=== PATIENT | male | born 1995 | race Caucasian/White ===

== ENCOUNTER 2019-03-07 10:36 | Emergency (ER) | payer OTHER ==
[2019-03-07] MEDS ORDERED: cefTRIAXone 250 MG in Lidocaine 1% 1 ML IM ONE ×4 (11:04)
[2019-03-07] MEDS ORDERED: Azithromycin 250 MG Tab PO ONE (11:04)
--- NOTE | 2019-03-07 11:07 | EDM.PDOC ---
ED HPI GENERAL MEDICAL PROBLEM - General Chief Complaint: Skin Complaint Stated Complaint: RASH Time Seen by Provider: 03/07/19 10:54 - History of Present Illness INITIAL COMMENTS - FREE TEXT/NARRATIVE: HISTORY AND PHYSICAL: History of present illness: The patient is a 23-year-old male with no significant past medical history who presents with a rash on his penile shaft that he noticed 2-3 weeks ago and has not gone away. He says he has had unprotected sex and has not been good about being more discerning and protecting himself and says that initially the rash started as a peely like area of skin on the shaft of the penis and then he proceeded to become more bumpy and seems to be spreading to the other side of his penis. Is not going to the proximal penile shaft and there are no lesions seen on the scrotal skin or the perineal area. He has no systemic complaints of fever chills nausea vomiting abdominal pain dysuria frequency flank pain or penile discharge. He says that from the beginning the area has always been sensitive and painful but he is never noticed any vesicles or pustules or any drainage from the areas. He has not noticed any swollen glands in his groin area. He also says that he has been having some pain in his right upper extremity which is the entire arm and is more with movement but he just started a new job and just wanted to tell me that as well. The patient has no testicular pain or swelling Review of systems: As per history of present illness and below otherwise all systems reviewed and negative. Past medical history: As per history of present illness and as reviewed below otherwise noncontributory. Surgical history: As per history of present illness and as reviewed below otherwise noncontributory. Social history: No reported history of drug or alcohol abuse. Family history: As per history of present illness and as reviewed below otherwise noncontributory. Physical exam: HEENT: Atraumatic, normocephalic,, negative for conjunctival pallor or scleral icterus, mucous membranes moist, throat clear, neck supple, nontender, trachea midline. Lungs: Clear to auscultation, breath sounds equal bilaterally, chest nontender. Heart: S1S2, regular in rhythm no overt murmurs Abdomen: Soft, nondistended, nontender. Negative for masses or hepatosplenomegaly. Negative for costovertebral tenderness. Pelvis: Stable nontender. Genitourinary: Testicles are distended bilaterally and there is no inguinal adenopathy. There is no rash or lesions seen except at the distal third of the penile shaft where there are bumpy like areas that are raised and palpable only one area that looks somewhat vesicular. The area seems almost circumferential but is not complete. There is tenderness with palpation but there is no swelling. Rectal: Deferred. Extremities: Atraumatic, negative for cords or calf pain. Neurovascular unremarkable. Neuro: Awake, alert, oriented. Cranial nerves II through XII unremarkable. Cerebellum unremarkable. Motor and sensory unremarkable throughout. Exam nonfocal. Diagnostics: [] Therapeutics: Rocephin azithromycin I discussed with the patient that he would need to follow-up with urology as it is unclear what these lesions truly are but they're suspicious for HSV. He would like to be treated for everything and I will give him antibiotics for gonorrhea and chlamydia as well as Valtrex for home. He is agreeable with this plan. Impression: Penile lesions rule out HSV Definitive disposition and diagnosis as appropriate pending reevaluation and review of above. Genitals Pain Score (Numeric/FACES): 4 - Related Data Allergies Allergy/AdvReac Type Severity Reaction Status Date / Time morphine Allergy Anaphylactic Verified 03/07/19 10:52 Shock Home Meds: Home Meds Escitalopram [Lexapro] 20 mg PO DAILY 03/07/19 [History] Past Medical History HEENT History: Reports: None Cardiovascular History: Reports: None Respiratory History: Reports: None Gastrointestinal History: Reports: None Genitourinary History: Reports: None Musculoskeletal History: Reports: None Neurological History: Reports: None Psychiatric History: Reports: Aggressive/Hostile Behaviors, Depression, Emotional Problems, Suicide Attempt, Suicidal Ideation Endocrine/Metabolic History: Reports: None Hematologic History: Reports: None Oncologic (Cancer) History: Reports: None - Infectious Disease History Infectious Disease History: Reports: None - Past Surgical History Head Surgeries/Procedures: Reports: None Social & Family History - Family History Family Medical History: Noncontributory - Tobacco Use Smoking Status *Q: Never Smoker ED ROS GENERAL - Review of Systems Review Of Systems: ROS reveals no pertinent complaints other than HPI. ED EXAM, SKIN/RASH Exam: See Below (see Dictation) Course - Vital Signs Last Recorded V/S: Last Vital Signs Temp 35.6 C 03/07/19 10:54 Pulse 71 03/07/19 10:54 Resp 16 03/07/19 10:54 BP 129/69 03/07/19 10:54 Pulse Ox 97 03/07/19 10:54 - Orders/Labs/Meds Meds: Medications Discontinued Medications Generic Name Dose Route Start Last Admin Trade Name Lyndsey PRN Reason Stop Dose Admin Azithromycin 1,000 mg 03/07/19 11:04 Zithromax PO 03/07/19 11:05 ONETIME ONE Ceftriaxone Sodium 250 mg/ 1 mls @ 1 mls/sec 03/07/19 11:04 Lidocaine HCl IM 03/07/19 11:05 ONETIME ONE Ceftriaxone Sodium 250 mg/ 1 mls @ 1 mls/sec 03/07/19 11:04 Lidocaine HCl IM 03/07/19 11:05 ONETIME ONE Departure - Departure Time of Disposition: 11:11 Disposition: Home, Self-Care 01 Condition: Good Clinical Impression: Penile lesion - Discharge Information Referrals: PCP,None [Primary Care Provider] - Forms: ED Department Discharge Additional Instructions: The following information is given to patients seen in the emergency department who are being discharged to home. This information is to outline your options for follow-up care. We provide all patients seen in our emergency department with a follow-up referral. The need for follow-up, as well as the timing and circumstances, are variable depending upon the specifics of your emergency department visit. If you don't have a primary care physician on staff, we will provide you with a referral. We always advise you to contact your personal physician following an emergency department visit to inform them of the circumstance of the visit and for follow-up with them and/or the need for any referrals to a consulting specialist. The emergency department will also refer you to a specialist when appropriate. This referral assures that you have the opportunity for followup care with a specialist. All of these measure are taken in an effort to provide you with optimal care, which includes your followup. Under all circumstances we always encourage you to contact your private physician who remains a resource for coordinating your care. When calling for followup care, please make the office aware that this follow-up is from your recent emergency room visit. If for any reason you are refused follow-up, please contact the [facility] emergency department at and ask to speak to the emergency department charge nurse. [facility] [address] [place], [place] [id number] Please take the Valtrex as prescribed and did not engage in any sexual intercourse until you're finished with the treatment and wait at least 4-5 days afterwards. Please call and schedule follow-up appointment with our urologist for further care and evaluation of this problem and return to ER as needed and as discussed
== END 2019-03-07 11:54 | disposition home or self-care (01) ==
LOC: MW.ED 10:36
DX: N50.9 Disorder of male genital organs, unspecified (principal); Z88.5 Allergy status to narcotic agent; Z79.899 Other long term (current) drug therapy
CPT/HCPCS: 96372; 99282; A9270; J0696; J2001; 99283